=== PATIENT | male | born 1975 | race Caucasian/White ===

== ENCOUNTER → 2020-12-16 09:57 | Outpatient (CLI) | payer BC, SELFPAY ==
[2020-12-16] MEDS: COVID-19 VACC #1, MRNA(MOD) 100 MCG/0.5 ML VIAL IM (10:06)
== END ==
PROVIDERS: PCP Family Medicine; Visit Provider Internal Medicine
DX: Z23 Encounter for immunization (principal)
CPT/HCPCS: 0011A; 91301

== ENCOUNTER → 2021-01-13 09:53 | Outpatient (CLI) | payer BC, SELFPAY ==
[2021-01-13] MEDS: COVID-19 VACC #2, MRNA(MOD) 100 MCG/0.5 ML VIAL IM (09:55)
== END ==
PROVIDERS: PCP Family Medicine; Visit Provider Internal Medicine
DX: Z23 Encounter for immunization (principal)
CPT/HCPCS: 0012A; 91301

== ENCOUNTER 2023-03-08 12:17 | Day surgery (SDC) | payer BC, SELFPAY ==
--- NOTE | 2023-03-08 | PATH_ITS ---
[facility] Accession Number: [id number] No. of containers..04 Tissue . 01 Material submitted: . PART A: colon - ASCENDING POLYP PART B: colon - TRANSVERSE POLYP PART C: colon - DESCENDING POLYPS PART D: rectum - RECTAL MASS . 01 Diagnosis: A. Ascending Colon, Polypectomy: Tubular adenoma. . B. Transverse Colon, Polypectomy: Tubular adenoma. . C. Descending Colon, Polypectomies: Tubular adenomas. . D. Rectum, Mass, Biopsies: Invasive adenocarcinoma, moderately differentiated. Arises in a background of high-grade dysplasia. Please see comment. [facility] 03/15/2023 1705 Local . 01 Comment: Dr. Gomez also reviewed this case and agrees with the diagnosis. Dr. Calderon gave preliminary results to [place] in Dr. Chen's office on 03/15/2023 at 3:30 p.m. Mismatch repair IHC will be performed and the results reported as an addendum. . 01 Electronically signed: . Danna Calderon MD, Pathologist NPI- [id number] . 01 Gross description: . Part A: ASCENDING POLYP: Received in formalin are 2 fragment(s) of johnson, soft tissue measuring 0.3 x 0.3 x 0.2 cm to 0.9 x 0.8 x 0.7 cm submitted entirely in 1 cassette(s) Part B: TRANSVERSE POLYP: Received in formalin are 2 fragment(s) of johnson, soft tissue measuring 0.3 x 0.3 x 0.3 cm to 0.5 x 0.5 x 0.5 cm submitted entirely in 1 cassette(s) Part C: DESCENDING POLYPS: Received in formalin are 2 fragment(s) of johnson, soft tissue measuring 0.7 x 0.7 x 0.7 cm to 1.0 x 1.0 x 0.8 cm which is bisected and submitted entirely in 1 cassette(s) Part D: RECTAL MASS: Received in formalin are multiple fragment(s) of johnson, soft tissue measuring 0.1 x 0.1 x 0.1 cm to 0.5 x 0.3 x 0.3 cm submitted entirely in 1 cassette(s) /SUGAR 03/13/2023 1858 Local . 01 Pathologist provided ICD-10: D12.2, D12.3, D12.4, C20 . 01 CPT . 544957, 108566, 655790, 338358, [id number], [id number] Specimen Comment: A courtesy copy of this report has been sent to [phone] Performed at: 01 [facility] [address] [place] [address] [id number] MD Anjel Steve MD Phone: [phone]
[2023-03-08 12:30] VITALS: BMI 54.7
[2023-03-08 12:37] VITALS: BP 154/108; PULSE 80; RESP 22; TEMP 36.3; O2SAT 95
[2023-03-08] MEDS: LACTATED RINGERS 1,000 ML 42 ML IV (12:53)
--- NOTE | 2023-03-08 13:20 | P.HP_ITS ---
History of Present Illness History of Present Illness Date Patient Seen: 03/08/23 Time Patient Seen: 13:20 Chief complaint: Colonoscopy Narrative: Oscar is a 48-year-old man presents for a colonoscopy due to rectal bleeding. He has not had colonoscopy before. See the office note from January for details. [facility] Medical History Essential hypertension (10/02/17) Essential hypertension (~09/2017) Hypercholesteremia (~09/2017) Pure hypercholesterolemia (10/02/17) Social History household members: spouse Smoking Status: Never smoker alcohol intake: current Meds Home Medications and Allergies Home Medications Medication Instructions Recorded Confirmed Type losartan 25 mg tablet 25 mg PO DAILY 01/31/23 03/08/23 History sodium sul 1.479 gram-potas ch See Rx Instructions PO PER PKG DIR 01/31/23 Rx 0.188 gram-magnes sul 0.225 gram #24 tabs tablet (Sutab) Allergies Allergy/AdvReac Type Severity Reaction Status Date / Time No Known Drug Allergies Allergy Verified 03/08/23 12:26 Exam Vital Signs (past 8 hours): - 03/08/23 12:37 Temperature 97.3 F L Pulse Rate 80 Respiratory Rate 22 Blood Pressure 154/108 H Pulse Oximetry 95 Oxygen Delivery Method Room Air Oxygen Delivery Method Room Air Const Nutritional Appearance: obese Resp Effort & Inspection: normal respiratory effort Assessment & Plan Assessment and plan (1) Rectal bleeding: Status: Acute Plan We reviewed the risks and benefits of colonoscopy for rectal bleeding and he would like to proceed.
--- NOTE | 2023-03-08 13:59 | P.OP.COLON_ITS ---
Operative Date/Time/Diagnoses Date of procedure: 03/08/23 Time of procedure: 14:48 Pre-op diagnosis: Rectal bleeding Post-op diagnosis: same Procedure & Clinicians Study performed: Colonoscopy Same procedure as scheduled: Yes Surgeon: Danny Chen Procedure Notes Procedure in detail: Surgeon: Danny Chen MD Anesthesia: Ag Flaherty CRNA Procedure: The patient was brought to the endoscopy suite, placed in left lateral decubitus position. The patient was connected to monitoring devices. A time-out was performed. Sedation was administered. Once the patient was adequately sedated, a digital rectal exam was performed and a mass was palpated in the anterior rectum. The scope was then inserted and advanced to the cecum where the appendiceal orifice was identified and photographed. The scope was then slowly withdrawn over greater than 6 minutes. The mucosa was thoroughly i nspected. There was a 7 mm polyp in the ascending colon removed with the cold snare. There was a 7 mm polyp in the transverse colon removed with a cold snare. There were 2 polyps in the descending colon that were on a stalk. One was about 1.5 cm and 1 was about 1.8 cm. Both were resected with a hot snare. These 2 polyps were at 50 cm from the anal verge. There was a large fungating mass in the distal rectum extending from the dentate line. Fragments were removed with a combination of hot snare and Jumbo forceps and sent as ?rectal mass?. The scope was retroflexed in the rectum. The scope was straightened and removed. The patient was awakened and brought to recovery. Scope withdrawal time: 24 minutes Sedation time: 27 minutes EBL: 10 mL Findings: Ascending colon polyp, transverse colon polyp, descending colon polyps and rectal mass Post-procedure Disposition: PACU
[2023-03-08 14:50] VITALS: BP 97/67; PULSE 72; RESP 22; TEMP 36.8; O2SAT 98
[2023-03-08 14:55] VITALS: BP 123/88; PULSE 69; RESP 12; O2SAT 95
[2023-03-08 15:02] VITALS: BP 146/100; PULSE 61; RESP 16; TEMP 36.5; O2SAT 97
[2023-03-08 15:10] VITALS: BP 152/94; PULSE 62; RESP 16; TEMP 36.6; O2SAT 96
[2023-03-08 15:30] LABS: Add Manual Diff / Slide Review NO; Basophils Absolute Auto 100 /uL (0-100); Basophils Percent Auto 0.7 % (0-2); Eosinophils Absolute Auto 100 /uL (0-450); Eosinophils Percent Auto 1.3 % (2-4); Hematocrit 39.7 % (41-53); Hemoglobin 13.7 g/dL (13.5-17.5); Lymphocytes Absolute Auto 1100 /uL (1100-4500); Lymphocytes Percent Auto 14.7 % (25-40); Mean Corpuscular HGB Conc 34.4 % (30-36); Mean Corpuscular Hemoglobin 30.4 PG (26-34); Mean Corpuscular Volume 88.4 fL (80-100); Monocytes Absolute Auto 400 /uL (0-900); Monocytes Percent Auto 5.6 % (3-14); Neutrophils Absolute Auto 6000 /uL (1500-7000); Neutrophils Percent Auto 77.7 % (50-75); Platelet Count 250 X10^3/uL (150-400); Red Blood Cell Count 4.49 X10^6/uL (4.5-5.9); Red Cell Distribution Width 13.8 % (11.6-14.8); White Blood Cell Count 7.7 X10^3/uL (4.5-11.0)
[2023-03-08 15:50] LABS: Alanine Aminotransferase 43 IU/L (<50); Albumin 3.9 g/dL (3.5-5.0); Albumin Globulin Ratio 1.4 (1.0-2.8); Alkaline Phosphatase 52 U/L (38-126); Aspartate Aminotransferase 30 IU/L (17-59); BUN Creatinine Ratio 9.7 (6-22); Bilirubin Total 0.8 mg/dL (0.2-1.3); Blood Urea Nitrogen 10 mg/dL (9-20); Calcium 8.5 mg/dL (8.4-10.2); Carbon Dioxide 30 mmol/L (22-32); Chloride 102 mmol/L (98-107); Estimated Glomerular Filt Rate > 60 mL/min (>60); Globulin 2.7 g/dL (1.7-4.1); Glucose 112 mg/dL (70-100); HEMOLYSIS < 15 (0-50); Potassium 4.5 mmol/L (3.4-5.1); Sodium 137 mmol/L (137-145); Total Protein 6.6 g/dL (6.3-8.2)
[2023-03-08 16:19] LABS: Carcinoembryonic Antigen 3.6 ng/mL (0.1-3.0)
== END 2023-03-08 15:50 | disposition home or self-care (01) ==
PROVIDERS: PCP Family Medicine; Referring Provider Surgery; Visit Provider Surgery
PROC: 0DJD8ZZ Inspection of Lower Intestinal Tract, Via Natural or Artificial Opening Endoscopic (ICD-10-PCS; CPT 45378; principal; 2023-03-08 13:15)
DX: C20 Malignant neoplasm of rectum (principal); D12.2 Benign neoplasm of ascending colon; D12.3 Benign neoplasm of transverse colon; D12.4 Benign neoplasm of descending colon
CPT/HCPCS: 45385; 45380; 80053; 82378; 85025; J2704

== ENCOUNTER → 2023-03-14 13:54 | Outpatient (CLI) | payer BC, SELFPAY ==
--- NOTE | 2023-03-14 13:55 | DI.CT.S_ITS ---
PROCEDURE: CT CHEST ABD PEL W CON INDICATIONS: rectal mass TECHNIQUE: After the administration of oral and intravenous contrast, axial sections acquired from the supraclavicular neck to the pubic symphysis. Coronal and sagittal reformats were performed. For radiation dose reduction, the following was used: automated exposure control, adjustment of mA and/or kV according to patient size. COMPARISON: None. FINDINGS: Image quality: Excellent. CHEST: Lower Neck: No enlarged lymph nodes. Thyroid: Within normal limits. Axillae: No enlarged lymph nodes. Chest Wall: Unremarkable. Lungs and Airways: No consolidation or suspicious nodules. Streaky opacity in the left lobe. Airways are clear. Pleura: No pneumothorax or pleural effusions. Heart: Heart size is normal. No pericardial effusion. Thoracic Vessels: The aorta and pulmonary arteries demonstrate normal size. Mediastinum and Gini: No enlarged lymph nodes. Esophagus: No wall thickening. No hiatal hernia. ABDOMEN: Liver: Hepatic steatosis. No focal lesion. Gallbladder: Unremarkable. Biliary ducts: Unremarkable. Pancreas: Unremarkable. Spleen: Unremarkable. Adrenal Glands: No nodule. Kidneys and Ureters: No hydronephrosis. Stomach and Bowel: Stomach is not distended. No small bowel obstruction. Diverticulosis. Normal appendix. Lower rectal wall thickening, (5/52). Peritoneum: No abnormal intraperitoneal fluid. No free air. Ventral Wall: No hernia. Abdominal Nodes: No retroperitoneal or mesenteric adenopathy by size criteria. Vessels: Aorta and inferior vena cava are normal in size. PELVIS: Pelvic Organs: Unremarkable. Bladder: Unremarkable. Pelvic Nodes: No enlarged lymph nodes. Miscellaneous: No inguinal hernias are seen. Suspected trace fluid within the right inguinal canal. Bones: No suspicious lesion. IMPRESSION: 1. Lower rectal wall mass. 2. No enlarged lymph nodes. 3. No focal hepatic lesion. Hepatic steatosis. 4. No metastatic disease in the chest. Dictated by: Atilio Peng M.D. on 03/14/2023 at 19:49 Approved by: Atilio Peng M.D. on 03/14/2023 at 20:02
== END ==
PROVIDERS: PCP Family Medicine; Referring Provider Surgery; Visit Provider Surgery
DX: K62.5 Hemorrhage of anus and rectum (principal); K76.0 Fatty (change of) liver, not elsewhere classified
CPT/HCPCS: 71260; 74177; Q9967

== ENCOUNTER → 2023-03-18 | Outpatient (CLI) | payer BC, SELFPAY | PROVIDERS: PCP Family Medicine; Referring Provider Surgery; Visit Provider Surgery ==